=== PATIENT | female | born 1955 | race Caucasian/White ===

== ENCOUNTER 2018-04-30 15:11 | Outpatient (CLI) | payer BC ==
--- NOTE | 2018-04-30 16:55 | BD ---
Exam: DEXA Bone Density 04/30/18 HISTORY: Postmenopausal female. Screening study. FINDINGS: Lumbar Spine: BMD (g/cm2) T-Score: Z-Score: L1 0.923 -0.6 0.7 L2 1.044 0.1 1.6 L3 1.106 0.2 1.7 L4 1.054 -0.1 1.5 L1-L4 1.029 -0.2 1.3 Femoral Neck: 0.844 0.0 1.3 Total Femur: 0.852 -0.7 0.2 Impression: Lumbar spine: WHO classification is normal. Fracture risk is not increased. Femoral neck: WHO classification is normal. FRAX not reported because all T-Scores are at or above -1.0. Prior hip or vertebral fracture. POS: [facility]
== END 2018-04-30 15:12 | disposition home or self-care (01) ==
LOC: BICMAMMO 15:11
DX: Z12.31 Encounter for screening mammogram for malignant neoplasm of breast (principal); Z13.820 Encounter for screening for osteoporosis; R92.1 Mammographic calcification found on diagnostic imaging of breast
CPT/HCPCS: 77063; 77067; 77080

== ENCOUNTER 2023-05-06 06:33 | Inpatient (IN) | payer MEDICARE, BC ==
[2023-05-02 13:37] VITALS: BMI 25.5
[2023-05-06] MEDS ORDERED: Tranexamic Acid 1,000 MG/10 ML VIAL ONE (07:43)
[2023-05-06] MEDS ORDERED: Sodium Chloride 0.9% 100 ML ONE ×2 (07:43→08:47)
[2023-05-06] MEDS ORDERED: Vancomycin 1 GM/200 ML (FROZEN) BAG ONE (07:44)
[2023-05-06] MEDS ORDERED: Midazolam HCl 2 mg/2 ml Vial ONE ×3 (08:12→09:57)
[2023-05-06] MEDS ORDERED: fentaNYL 50 mcg/mL 1 mL Vial ONE (08:12)
[2023-05-06] MEDS ORDERED: Lidocaine 1% (PF) 30 ML VIAL ONE (08:12)
[2023-05-06] MEDS ORDERED: Bupivacaine PF 0.5% 30 ML VIAL ONE ×3 (08:12→08:53)
[2023-05-06] MEDS ORDERED: CEFAZOLIN 2 GM VIAL ONE (08:47)
[2023-05-06] MEDS ORDERED: fentaNYL PF 100 MCG/2 ML SYRINGE ONE (08:48)
[2023-05-06] MEDS ORDERED: EPINEPHrine 1 MG/ML VIAL ONE (08:53)
[2023-05-06] MEDS ORDERED: traMADol HCl 50 MG TAB PO PRN (09:15)
[2023-05-06] MEDS ORDERED: Zolpidem Tartrate 5 MG TAB PO PRN ×2 (09:15→10:42)
[2023-05-06] MEDS ORDERED: Ropivacaine 0.2% 550 ML 550 ML NERVE BLCK SCH (09:15)
[2023-05-06] MEDS ORDERED: Promethazine HCl 25 MG/ML VIAL IM PRN ×2 (09:15→10:42)
[2023-05-06] MEDS ORDERED: Ondansetron PF 4 MG/2 ML Vial IVP PRN (09:15)
[2023-05-06] MEDS ORDERED: ePHEDrine Sulfate 50 MG/10 ML VIAL ONE (10:02)
[2023-05-06] MEDS ORDERED: Ondansetron PF 4 MG/2 ML Vial ONE (10:21)
[2023-05-06] MEDS ORDERED: Phenylephrine 10 MG/ML VIAL ONE (10:21)
[2023-05-06] MEDS ORDERED: diphenhydrAMINE 25 MG CAP PO PRN (10:42)
[2023-05-06] MEDS: Sodium Chloride 0.9% 1,000 ML IV SCH (13:20)
[2023-05-06] MEDS: Ketorolac Tromethamine 30 MG (1 mL) VIAL IVP SCH (13:20)
[2023-05-06] MEDS: traMADol HCl 50 MG TAB PO PRN (15:24)
[2023-05-06] MEDS: fentaNYL 50 mcg/mL 1 mL Vial SLOW IVP PRN (15:24)
[2023-05-06] MEDS: Acetaminophen 325 MG TAB PO PRN (15:25)
[2023-05-06] MEDS: CEFAZOLIN 2 GM in Sodium Chloride 0.9% 100 ML IVPB SCH ×2 (16:46→20:02)
[2023-05-06] MEDS: HYDROcodone/Acetaminophen 10/325 mg Tablet PO PRN (16:47)
[2023-05-06] MEDS: Ondansetron PF 4 MG/2 ML Vial IVP PRN (16:47)
[2023-05-06] MEDS: Aspirin 81 mg Enteric Coated Tablet PO SCH (22:01)
[2023-05-06] MEDS: Venlafaxine 75 MG TAB PO SCH (22:03)
[2023-05-07 04:21] LABS: Hematocrit 31.8 % (36.0-47.0); Hemoglobin 10.4 g/dL (12.0-16.0); Mean Corpuscular HGB CONC 32.7 g/dL (32.0-36.0); Mean Corpuscular Hemoglobin 30.6 pg (27.0-31.0); Mean Corpuscular Volume 93.5 fl (78.0-98.0); Mean Platelet Volume 9.4 fL (7.4-10.4); Platelet Count 205 10x3/uL (130-400); RBC Distribution Width 12.5 % (11.5-14.5); White Blood Cell (WBC) Count 7.5 10x3/uL (4.8-10.8)
[2023-05-07] MEDS: Thyroid 60 MG TAB PO SCH (05:34)
[2023-05-07] MEDS: HYDROcodone/Acetaminophen 10/325 mg Tablet PO PRN (05:34)
[2023-05-07] MEDS: Ferrous Gluconate 324 MG TAB PO SCH (08:38)
[2023-05-07] MEDS: Senokot S 8.6-50 MG TAB PO SCH (08:38)
[2023-05-07] MEDS: Multivitamin W/ Minerals 1 TAB PO SCH (08:38)
[2023-05-07] MEDS: Mag-Al 1200 mg/1200 mg/30 ML UDCUP PO PRN (21:27)
[2023-05-08 04:55] LABS: Hematocrit 31.5 % (36.0-47.0); Hemoglobin 10.2 g/dL (12.0-16.0); Mean Corpuscular HGB CONC 32.4 g/dL (32.0-36.0); Mean Corpuscular Hemoglobin 29.9 pg (27.0-31.0); Mean Corpuscular Volume 92.4 fl (78.0-98.0); Mean Platelet Volume 9.6 fL (7.4-10.4); Platelet Count 208 10x3/uL (130-400); RBC Distribution Width 12.6 % (11.5-14.5); Red Blood Cell (RBC) Count 3.41 mill/uL (4.20-5.40); White Blood Cell (WBC) Count 8.2 10x3/uL (4.8-10.8)
[2023-05-08 05:29] LABS: ALT (SGPT) 14 U/L (8-55); AST (SGOT) 20 U/L (5-34); Albumin 3.2 g/dL (3.4-4.8); Alkaline Phosphatase 60 U/L (40-110); Anion Gap 9 mmol/L (10-20); BUN (Urea Nitrogen) 10 mg/dL (9.8-20.1); Bilirubin, Total 0.8 mg/dL (0.2-1.2); Calc. Creatinine Clearance 112 mL/min (70-130); Calcium 8.6 mg/dL (7.8-10.44); Carbon Dioxide 29 mmol/L (23-31); Chloride 104 mmol/L (98-107); Estimated GFR 100; Globulin 2.2 g/dL (2.4-3.5); Glucose 146 mg/dL (80-115); Potassium 3.5 mmol/L (3.5-5.1); Protein, Total 5.4 g/dL (5.8-8.1); Sodium 138 mmol/L (136-145)
[2023-05-08 08:09] VITALS: BP 138/80; TEMP 98.2
== END 2023-05-08 11:30 | disposition home or self-care (01) | DRG 470 ==
LOC: SDC 06:33 → SJJU 12:37 → SDC 15:25 → SJJU 15:26 → OBSVTOIN 15:26 → INTOOBSV 15:26 → OBSVTOIN 05-08 06:48
PROVIDERS: ADMIT Orthopaedic Surgery; ATTEND Orthopaedic Surgery
PROC: 0SRC0J9 Replacement of Right Knee Joint with Synthetic Substitute, Cemented, Open Approach (ICD-10-PCS; principal; 2023-05-06)
DX: M17.11 Unilateral primary osteoarthritis, right knee (principal); F32.A Depression, unspecified; Z79.890 Hormone replacement therapy; Z79.899 Other long term (current) drug therapy; Z83.3 Family history of diabetes mellitus
CPT/HCPCS: 36415; 80053; 85027; 96365; 96375; 96376; A4306; C1776; G0378; J0171; J0665; J1885; J2001; J2250; J2371; J2405; J2795; J3010; J3370-JW; J3490

== ENCOUNTER 2024-03-13 09:52 | Outpatient (CLI) | payer MEDICARE ==
[2024-03-13 11:13] LABS: #Basophils 0.04 10x3/uL (0.0-0.2); %Basophils 0.8 % (0.0-1.0); %Eosinophils 1.6 % (0.0-10.0); %Lymphocytes 36.7 % (21.0-51.0); %Monocytes 8.6 % (0.0-10.0); %Neutrophils 52.1 % (42.0-75.0); Hematocrit 37.5 % (36.0-47.0); Hemoglobin 12.5 g/dL (12.0-16.0); Mean Corpuscular HGB CONC 33.3 g/dL (32.0-36.0); Mean Corpuscular Hemoglobin 28.9 pg (27.0-31.0); Mean Corpuscular Volume 86.8 fL (78.0-98.0); Mean Platelet Volume 9.3 fL (7.4-10.4); Platelet Count 252 10x3/uL (130-400); RBC Distribution Width 12.7 % (11.5-14.5); Red Blood Cell (RBC) Count 4.32 mill/uL (4.20-5.40)
[2024-03-13 11:17] LABS: Bilirubin Negative (Negative); Blood, Urine Negative (Negative); Clarity Clear (Clear); Glucose, Urine (Dipstick) Normal (Negative); Ketone, Urine Negative (Negative); Leukocyte Negative Leu/uL (Negative); Nitrite Negative (Negative); Protein, Urine (Dipstick) Negative (Neg-Trace); Specific Gravity, Urine 1.005 (1.002-1.036); Urobilinogen Normal mg/dL (Less than 2); pH, Urine 7.5 (5.0-9.0)
[2024-03-13 11:28] LABS: Prothrombin Time 12.8 sec (12.0-14.7)
[2024-03-13 11:37] LABS: Anion Gap 11 mmol/L (10-20); BUN (Urea Nitrogen) 14 mg/dL (9.8-20.1); Calc. Creatinine Clearance 0 mL/min (70-130); Calcium 9.4 mg/dL (7.8-10.44); Carbon Dioxide 26 mmol/L (23-31); Chloride 104 mmol/L (98-107); Estimated GFR 98; Glucose 90 mg/dL (80-115); Potassium 3.8 mmol/L (3.5-5.1); Sodium 137 mmol/L (136-145)
== END 2024-03-13 09:53 | disposition home or self-care (01) ==
LOC: LABBT 09:52
PROVIDERS: ATTEND Orthopaedic Surgery
DX: Z01.818 Encounter for other preprocedural examination (principal); M17.12 Unilateral primary osteoarthritis, left knee
CPT/HCPCS: 71046; 80048; 81003; 85025; 85610; 87081; 93005; 93010

== ENCOUNTER 2024-03-18 13:55 | Outpatient (CLI) | payer MEDICARE | END 2024-03-18 13:56 | disposition home or self-care (01) | LOC: BICCT 13:55 | PROVIDERS: ATTEND Orthopaedic Surgery | DX: M17.12 Unilateral primary osteoarthritis, left knee (principal) ==

== ENCOUNTER 2024-03-23 09:56 | Inpatient (IN) | payer MEDICARE ==
[2024-03-13 10:10] VITALS: BMI 25.5
[2024-03-23] MEDS ORDERED: Tranexamic Acid 1,000 MG/10 ML VIAL ONE ×2 (10:50→14:39)
[2024-03-23] MEDS ORDERED: Vancomycin 1 GM/200 ML (FROZEN) BAG ONE (10:51)
[2024-03-23] MEDS ORDERED: Sodium Chloride 0.9% 100 ML ONE (10:51)
[2024-03-23] MEDS ORDERED: CEFAZOLIN 2 GM VIAL ONE (10:59)
[2024-03-23] MEDS ORDERED: Bupivacaine 0.25% HCL 30 ML VIAL ONE (10:59)
[2024-03-23] MEDS ORDERED: fentaNYL 50 mcg/mL 1 mL Vial ONE (11:02)
[2024-03-23] MEDS ORDERED: Midazolam HCl 2 mg/2 ml Vial ONE (11:03)
[2024-03-23] MEDS ORDERED: Ropivacaine 0.5% HCl/PF (150 MG/30 ML VIAL) ONE (11:03)
[2024-03-23] MEDS ORDERED: Ondansetron PF 4 MG/2 ML Vial ONE ×2 (11:18→13:42)
[2024-03-23] MEDS ORDERED: PROPOFOL 20 ML ONE (11:18)
[2024-03-23] MEDS ORDERED: Lidocaine 1% PF 5 ML VIAL ONE (11:18)
[2024-03-23] MEDS ORDERED: fentaNYL PF 100 MCG/2 ML SYRINGE ONE (11:18)
[2024-03-23] MEDS ORDERED: Dexamethasone 4 mg/ml Vial ONE (11:22)
[2024-03-23] MEDS ORDERED: Dexmedetomidine 200 MCG/2 ML VIAL ONE (11:23)
[2024-03-23] MEDS ORDERED: Promethazine HCl 25 MG/ML VIAL IM PRN ×2 (12:02→12:15)
[2024-03-23] MEDS ORDERED: HYDROcodone/Acetaminophen 10/325 mg Tablet PO PRN (12:02)
[2024-03-23] MEDS ORDERED: Ondansetron PF 4 MG/2 ML Vial IVP PRN (12:02)
[2024-03-23] MEDS ORDERED: traMADol HCl 50 MG TAB PO PRN ×3 (12:02→12:15)
[2024-03-23] MEDS ORDERED: fentaNYL 50 mcg/mL 1 mL Vial SLOW IVP PRN (12:02)
[2024-03-23] MEDS ORDERED: diphenhydrAMINE 25 MG CAP PO PRN (12:02)
[2024-03-23] MEDS ORDERED: Zolpidem Tartrate 5 MG TAB PO PRN ×2 (12:02→12:15)
[2024-03-23] MEDS ORDERED: ePHEDrine Sulfate 50 MG/10 ML VIAL ONE (12:13)
[2024-03-23] MEDS ORDERED: Tranexamic Acid 1,000 MG in Sodium Chloride 0.9% 100 ML IVPB SCH (12:15)
[2024-03-23] MEDS ORDERED: Ropivacaine 0.2% 550 ML 550 ML NERVE BLCK SCH (12:15)
[2024-03-23] MEDS ORDERED: HYDROmorphone 2 MG/ML VIAL ONE (12:48)
[2024-03-23] MEDS ORDERED: PHENYLEPHRINE-NS 100 MCG/ML 10 ML SYRINGE ONE (13:16)
[2024-03-23] MEDS ORDERED: Ketorolac Tromethamine 30 MG (1 mL) VIAL IVP SCH (14:00)
[2024-03-23] MEDS ORDERED: Ketorolac Tromethamine 30 MG (1 mL) VIAL ONE (14:29)
[2024-03-23] MEDS: CEFAZOLIN 2 GM in Sodium Chloride 0.9% 100 ML IVPB SCH (18:17)
[2024-03-23] MEDS: Sodium Chloride 0.9% 1,000 ML IV SCH (18:29)
[2024-03-23] MEDS: Ketorolac Tromethamine 30 MG (1 mL) VIAL IVP SCH (21:20)
[2024-03-23] MEDS: Lidocaine 4% Patch TD SCH (21:20)
[2024-03-23] MEDS: Vancomycin (BATCH) 1.5 GM in Premix 1 BAG IVPB SCH (21:21)
[2024-03-23] MEDS: Aspirin 81 mg Enteric Coated Tablet PO SCH (21:21)
[2024-03-23] MEDS: Venlafaxine 75 MG TAB PO SCH (21:21)
[2024-03-23] MEDS: Ferrous Gluconate 324 MG TAB PO SCH (21:21)
[2024-03-23] MEDS: Senokot S 8.6-50 MG TAB PO SCH (21:22)
[2024-03-23] MEDS ORDERED: Vancomycin 1.5 GM in Sodium Chloride 0.9% 250 ML 300 ML IVPB SCH (22:00)
[2024-03-24] MEDS: Ondansetron PF 4 MG/2 ML Vial IVP PRN (03:02)
[2024-03-24 05:19] LABS: Hematocrit 32.6 % (36.0-47.0); Hemoglobin 10.6 g/dL (12.0-16.0); Mean Corpuscular HGB CONC 32.5 g/dL (32.0-36.0); Mean Corpuscular Volume 89.1 fL (78.0-98.0); Mean Platelet Volume 9.2 fL (7.4-10.4); Platelet Count 240 10x3/uL (130-400); RBC Distribution Width 12.6 % (11.5-14.5); Red Blood Cell (RBC) Count 3.66 mill/uL (4.20-5.40)
[2024-03-24] MEDS: Calcium Carbonate 500 MG ChewTAB PO PRN (08:56)
[2024-03-24] MEDS: Thyroid 60 MG TAB PO SCH (08:57)
[2024-03-24] MEDS: Pantoprazole 40 MG DR.TAB PO SCH (08:57)
[2024-03-24] MEDS: Transdermal LIDOCAINE Patch Removal TOP SCH (09:00)
[2024-03-24] MEDS: Ondansetron ODT 4 MG TAB PO PRN (09:51)
[2024-03-24] MEDS: Multivitamin W/ Minerals 1 TAB PO SCH (09:52)
[2024-03-24] MEDS: HYDROcodone/Acetaminophen 10/325 mg Tablet PO PRN ×2 (09:52→20:43)
[2024-03-24] MEDS: Acetaminophen 325 MG TAB PO PRN (16:07)
[2024-03-24] MEDS: traMADol HCl 50 MG TAB PO PRN (16:08)
[2024-03-24 16:19] VITALS: BMI 25.5
[2024-03-24] MEDS: fentaNYL 50 mcg/mL 1 mL Vial SLOW IVP PRN (21:03)
[2024-03-25 05:34] LABS: Hematocrit 28.8 % (36.0-47.0); Hemoglobin 9.4 g/dL (12.0-16.0); Mean Corpuscular HGB CONC 32.6 g/dL (32.0-36.0); Mean Corpuscular Hemoglobin 29.1 pg (27.0-31.0); Mean Corpuscular Volume 89.2 fL (78.0-98.0); Mean Platelet Volume 9.4 fL (7.4-10.4); Platelet Count 207 10x3/uL (130-400); RBC Distribution Width 12.8 % (11.5-14.5); Red Blood Cell (RBC) Count 3.23 mill/uL (4.20-5.40)
[2024-03-25] MEDS: Simethicone Chewable 80 MG TAB PO PRN (15:31)
[2024-03-26 05:31] LABS: Hematocrit 26.2 % (36.0-47.0); Hemoglobin 8.6 g/dL (12.0-16.0); Mean Corpuscular HGB CONC 32.8 g/dL (32.0-36.0); Mean Corpuscular Hemoglobin 29.4 pg (27.0-31.0); Mean Corpuscular Volume 89.4 fL (78.0-98.0); Mean Platelet Volume 9.4 fL (7.4-10.4); Platelet Count 192 10x3/uL (130-400); RBC Distribution Width 12.7 % (11.5-14.5); Red Blood Cell (RBC) Count 2.93 mill/uL (4.20-5.40)
[2024-03-26 08:05] VITALS: BP 97/56; TEMP 97.7
== END 2024-03-26 11:48 | disposition home or self-care (01) | DRG 470 ==
LOC: SDC 09:56 → SURG A 15:40 → SDC 16:34 → SURG A 16:44 → OBSVTOIN 03-25 10:13
PROVIDERS: ADMIT Orthopaedic Surgery; ATTEND Orthopaedic Surgery
PROC: 0SRD0J9 Replacement of Left Knee Joint with Synthetic Substitute, Cemented, Open Approach (ICD-10-PCS; principal; 2024-03-23)
DX: M17.12 Unilateral primary osteoarthritis, left knee (principal); R42 Dizziness and giddiness; Z79.899 Other long term (current) drug therapy
CPT/HCPCS: 36415; 85027; 96374; 96375; 96376; A4306; C1713; C1776; C1889; G0378; J0665; J1100; J1171; J1885; J2250; J2405; J2704; J2795; J3010; J3370; Q0162

== ENCOUNTER 2024-10-15 07:51 | Outpatient (CLI) | payer MEDICARE | END 2024-10-15 07:52 | disposition home or self-care (01) | LOC: SCSMRI 07:51 | PROVIDERS: ATTEND Family Medicine | DX: S22.060A Wedge compression fracture of T7-T8 vertebra, initial encounter for closed fracture (principal); S22.089A Unspecified fracture of T11-T12 vertebra, initial encounter for closed fracture | CPT/HCPCS: 72146 ==

== ENCOUNTER 2025-02-24 10:13 | Outpatient (CLI) | payer MEDICARE | END 2025-02-24 10:14 | disposition home or self-care (01) | LOC: SCSMRI 10:13 | PROVIDERS: ATTEND Family Medicine | DX: M25.512 Pain in left shoulder (principal); M75.112 Incomplete rotator cuff tear or rupture of left shoulder, not specified as traumatic; M25.862 Other specified joint disorders, left knee; M25.462 Effusion, left knee; S46.112A Strain of muscle, fascia and tendon of long head of biceps, left arm, initial encounter ==